=== PATIENT | female | born 1980 | race Native Hawaiian/Other Pacific Islander ===

== ENCOUNTER 2017-11-20 16:26 | Outpatient (CLI) | payer BC ==
[~2017-11-20 16:26] MED LIST: ADIPEX PO; CELEXA10 MG PO; CIPR500T PO; HYDR25TA60 PO; MOBIC7.5 M1 PO
== END 2017-11-20 20:27 | disposition home or self-care (01) ==
LOC: RAD 16:26
DX: R07.81 Pleurodynia (principal)